=== PATIENT | male | born 1970 ===

== ENCOUNTER 2024-08-15 12:25 | Day surgery (SDC) | payer MEDICAID ==
[2024-08-15] VITALS (10 sets, daily range): BP systolic 135–157; BP diastolic 79–97; PULSE 68–78; TEMP 98.3
[~2024-08-15] VITALS: Ht 182.9 cm; Wt 148.7 kg
[~2024-08-15 12:25] MED LIST: 1/2 NS 1,000 ML IV SCH
[2024-08-15] MEDS ORDERED: ELIQUIS 5MG PO (13:38)
[2024-08-15] MEDS ORDERED: ENTRESTO 24 MG1 EACH PO (13:39)
[2024-08-15] MEDS ORDERED: TOPROL XL100 MG PO (13:39)
[2024-08-15] MEDS ORDERED: DEMADEX 20MG20 M1 PO (13:40)
[2024-08-15] MEDS ORDERED: ALDACTONE 25MG25 M1 PO (13:40)
[2024-08-15 13:44] LABS: HEMATOCRIT 40.8 % (42.0-52.0); HEMOGLOBIN 13.7 g/dl (13.5-18.0); MEAN CELL VOLUME 89 fl (80.0-100.0); MEAN CORPUSCULAR HEMOGLOBIN 30 pg (27-31); MEAN CORPUSCULAR HGB CONC 34 g/dl (33.0-37.0); MEAN PLATELET VOLUME 10.1 fl (7.4-10.4); PLATELET COUNT 230 K/mm3 (130-400); REDCELL DISTRIBUTION WIDTH-CV 14.1 % (11.5-14.5)
[2024-08-15 14:01] LABS: INR 1.1 (0.8-3.0)
[2024-08-15 14:03] LABS: PARTIAL THROMBOPLASTIN TIME 29.9 SECONDS (26.0-37.0)
[2024-08-15 14:13] LABS: CALCIUM 9.6 mg/dL (8.4-10.2); CREATININE, serum 1.08 mg/dL (0.72-1.25); POTASSIUM 4.4 mEq/L (3.5-4.5)
--- NOTE | 2024-08-15 14:48 | NUR ---
Please see merge document for record of left heart cath with Dr. Bunn. Dr. Bunn was informed that Javier failed Barbeaux test, and that pt's last dose of eliquis was last night. Received okay to proceed with plan for femoral approach.
[2024-08-15] MEDS ORDERED: Midazolam 2 MG/2 ML VIAL IV SCH (15:11)
[2024-08-15] MEDS ORDERED: fentaNYL 50 MCG/ML 2 ML VIAL IV SCH (15:12)
[2024-08-15] MEDS ORDERED: Iohexol 350 - 100 ML VIAL INCOR ONE (15:19)
--- NOTE | 2024-08-15 15:37 | NUR ---
Javier is transported back to express unit rm 11 after left heart cath with Dr. Bunn. He is awake and alert, pwd with reg and unlabored respirations. Rt groin site remains soft with clean and dry dressing. distal pulses intact and marked. bs report and handoff of care to Denise DOUGLASS.
--- NOTE | 2024-08-15 18:51 | NUR ---
PT TOLERATED RECOVERY PERIOD WELL. PT REMAINED FLAT FOR [address] FAROOQ' ORDERS. VS REMAINED WITHIN NORMAL LIMITS. RIGHT FEMORAL DRESSING REMAINED CLEAN DRY AND INTACT. RIGHT FEMORAL ACCESS SITE REMAINED FREE FROM SIGNS OF BLEEDING AND HEMATOMA. IV DISCONTINUED. PT VERBALIZED UNDERSTANDING OF DISCHARGE INSTRUCTIONS. PT ASSISTED TO ER EXIT UPON DISCHARGE.
== END 2024-08-15 19:00 | disposition home or self-care (01) ==
LOC: COL.CAR 12:25
PROVIDERS: Internal Medicine Cardiovascular Disease
DX: I42.8 Other cardiomyopathies (principal); E66.9 Obesity, unspecified
CPT/HCPCS: C1760; C1894; J2250; J3010; Q9967